=== PATIENT | female | born 1980 | race African-American/Black ===

== ENCOUNTER 2020-05-15 18:15 | Emergency (ER) | payer SELFPAY ==
[~2020-05-15] VITALS: Ht 152.4 cm; Wt 75.0 kg
[2020-05-15 18:27] VITALS: Ht 152.4 cm; Wt 75.0 kg
[2020-05-15] MEDS ORDERED: INHALER (18:28)
[2020-05-15] MEDS ORDERED: ZPAK PO (19:18)
[2020-05-15] MEDS ORDERED: STERAPRED 5MG 65 M1 PO (19:18)
[2020-05-15 20:33] VITALS: BP 148/72
== END 2020-05-15 20:33 | disposition home or self-care (01) ==
LOC: D.ER 18:15
DX: J20.9 Acute bronchitis, unspecified (principal); Z72.0 Tobacco use